=== PATIENT | female | born 1935 ===

== ENCOUNTER → 2021-09-16 | Outpatient (CLI) | payer MEDICARE ==
[2021-09-20 20:06] LABS: HSV-1 DNA Negative (Negative); HSV-2 DNA Negative (Negative)
== END | disposition home or self-care (01) ==
LOC: LAB 15:06 → LAB SHORT 15:06
PROVIDERS: Physician Assistant Medical
DX: Z08 Encounter for follow-up examination after completed treatment for malignant neoplasm (principal); L57.0 Actinic keratosis; L24.4 Irritant contact dermatitis due to drugs in contact with skin; R21 Rash and other nonspecific skin eruption; L01.01 Non-bullous impetigo; L57.8 Other skin changes due to chronic exposure to nonionizing radiation; Z85.828 Personal history of other malignant neoplasm of skin
CPT/HCPCS: 87529; 87798